=== PATIENT | female | born 1975 | race Caucasian/White ===

== ENCOUNTER → 2020-05-15 12:42 | Outpatient (CLI) | payer MEDICARE, MEDICAID, SELFPAY ==
[2020-05-16 11:28] LABS: Covid-19 Nasal PCR Sendout Lex Not Detected
== END ==
PROVIDERS: PCP Family Medicine; Visit Provider Family Medicine
DX: Z03.818 Encounter for observation for suspected exposure to other biological agents ruled out (principal)
CPT/HCPCS: U0004